=== PATIENT | female | born 1960 ===

== ENCOUNTER 2025-08-09 08:39 | Emergency (ER) | payer BC, OTHER ==
[~2025-08-09] VITALS: Ht 180.3 cm; Wt 110.9 kg
[2025-08-09 08:41] VITALS: BP 169/105; PULSE 82; RESP 16; TEMP 98; O2SAT 98
[2025-08-09] MEDS ORDERED: FLUO20CA41 PO (09:40)
[2025-08-09] MEDS ORDERED: QUET50TA PO (09:40)
[2025-08-09] MEDS ORDERED: LORA-269 PO (09:40)
--- NOTE | 2025-08-09 09:42 | Physician Documentation ---
HPI ~ General Chief Complaint: Medication Refill Stated Complaint: MED REFILL Time Seen by MD: 08:42 History of Present Illness HPI Comments 64-year-old female presents to the ED requesting medication refill secondary to stopping all of her psychiatric medications 10 days ago. She normally takes Ativan, Seroquel and Prozac. He is now having panic attacks and does not see her provider until the 1st of next month which is couple of weeks from now Without Medications Since: Aug 09, 2025 Medication Reconciliation Allergies: Coded Allergies: No Known Allergies (Unverified , 08/09/25) Scheduled Fluoxetine Hcl* (Prozac*), 2 CAP PO QAM Quetiapine Fumarate (Seroquel), 1 TAB PO HS Scheduled PRN Lorazepam (Ativan), 1 TAB PO Q12H PRN PRN for anxiety Review of Systems All Other Systems at this time: Reviewed and Negative ROS As stated above in the HPI, otherwise all systems are reviewed and negative. Physical Exam Physical Exam Vital Signs: Temperature: 98.0, Source: Temporal, Heart Rate: 82, Respiratory Rate: 16, BP: 169/105, Pulse Oximetry: 98, Weight: 110.900 Oxygen Flow Rate: 0 Physical Exam General: Alert, no apparent distress. Respiratory: Lungs clear, no respiratory distress. Cardiovascular: Regular rate and rhythm, no murmurs. Extremities: Normal range of motion, no deformity. Neurologic: Oriented x4. Psychiatric: Normal mood and affect. Skin: Normal color, warm and dry. No edema, no ecchymosis. Progress Results/Orders Results/Orders Vital Signs 08/09/25 08/09/25 08:41 09:53 Temp 98.0 Pulse 82 Resp 16 B/P (MAP) 169/105 Pulse Ox 98 O2 Flow Rate 0 Medical Decision Making Additional information obtaine: N/A Findings I do not feel comfortable giving the patient an extended prescription of Ativan I will give her two pills for an acute panic attack.I will refill her Seroquel and Prozac Differential Dx:Considerations: Include: Adverse circumstances, Economic, Psychosocial, Medical services unavail., Medication refill, Medication non- compliance, Other Departure Disposition: 01 HOME / SELF CARE / HOMELESS Impression: Primary Impression: General medical exam Condition: Stable Discharge Instructions: Medicine Refill at the Emergency Department Referrals: NO PRIMARY CARE PROVIDER (PCP) Prescriptions Fluoxetine Hcl* (Prozac*) 20 Mg Capsule 2 CAP PO QAM for 30 Days, #30 CAP Prov: ROJELIO GRANT NP 08/09/25 Quetiapine Fumarate (Seroquel) 50 Mg Tablet 1 TAB PO HS for 30 Days, #30 TAB 0 Refills Prov: ROJELIO GRANT NP 08/09/25 Lorazepam (Ativan) 1 Mg Tablet 1 TAB PO Q12H PRN PRN for anxiety for 2 Days, #2 TAB 0 Refills Prov: ROJELIO GRANT NP 08/09/25 Education Educated: Patient Educated regarding: diagnosis Signature Scribe Signature: aga Attestation: Scribed for Rojelio Grant Archeologist by Rojelio Mcclellan NP . 08/09/25 18:26 ROJELIO GRANT NP Aug 09, 2025 09:42
== END 2025-08-09 09:53 | disposition home or self-care (01) ==
LOC: ER 08:40
DX: Z00.00 Encounter for general adult medical examination without abnormal findings (principal); Z76.0 Encounter for issue of repeat prescription
CPT/HCPCS: 99282